=== PATIENT | male | born 1995 | race Caucasian/White ===

== ENCOUNTER → 2017-10-17 | Outpatient (CLI) | payer BC, OTHER ==
[~2017-10-17] MED LIST: ALBU90OI; ALBU90OI INH; ALBU90OI61 INH; BUPR100ER PO; CITA20 PO; CRUTCH3 USE; GUAI120S1 PO; HYDACE5 PO; IBUP600 PO; IBUP800 PO; KETO15TC TP; MONT5TCH; Pepcid40 MG PO; SULTRIDS PO
[2017-10-17 10:50] LABS: Specimen Source URINE
[2017-10-18 15:17] LABS: Source Urine
== END ==
LOC: LAB EV 10:46
PROVIDERS: Physician Assistant Surgical
DX: Z72.51 High risk heterosexual behavior (principal)
CPT/HCPCS: 86592; 87389; 87491; 87591

== ENCOUNTER → 2018-01-29 | Outpatient (CLI) | payer BC, OTHER | END | disposition home or self-care (01) | LOC: LAB 16:00 → LAB SHORT 16:00 | DX: M25.559 Pain in unspecified hip (principal) | CPT/HCPCS: 85651; 86140 ==

== ENCOUNTER → 2018-11-25 | Outpatient (CLI) | payer BC, OTHER ==
[2018-11-26 09:14] LABS: HCV ANTIBODY <0.1 (0.0-0.9); HIV SCREEN 4TH GENERATION WRFX Non Reactive (Non Reactive)
[2018-11-26 23:12] LABS: CHLAMYDIA TRACHOMATIS, NAA Negative (Negative); NEISSERIA GONORRHOEAE, NAA Negative (Negative)
== END | disposition home or self-care (01) ==
LOC: LAB 12:25 → LAB SHORT 12:25
PROVIDERS: Nurse Practitioner Family
DX: Z20.2 Contact with and (suspected) exposure to infections with a predominantly sexual mode of transmission (principal)
CPT/HCPCS: 86317; 86695; 86696; 86803; 87389; 87491; 87591